=== PATIENT | male | born 1940 | race Caucasian/White ===

== ENCOUNTER 2016-11-06 06:10 | Inpatient (IN) | payer MEDICARE ==
[2016-11-06] VITALS (8 sets, daily range): BP systolic 140–186; BP diastolic 67–94; PULSE 54–60; RESP 16–24; O2SAT 99–100
[~2016-11-06 06:10] MED LIST: CIPR500T2 PO; LORT5TAB PO; NEXI40CA PO; PYRI200T4 PO; SIMV20 PO; vit d
[2016-11-06] MEDS ORDERED: ROCURONIUM INJ 50 MG/5 ML VIAL ONE ×2 (06:14→07:28)
[2016-11-06 06:35] LABS: I-STAT POTASSIUM 3.5 MMOL/L (3.5-4.9)
[2016-11-06 06:36] LABS: AUTOMATED NEUTROPHIL # 19.7 TH/MM3 (1.8-7.7); BASOPHIL # 0.1 TH/MM3 (0-0.2); BASOPHIL % 0.3 % (0.0-2.0); EOSINOPHIL % 0.1 % (0.0-4.0); HEMATOCRIT 29.5 % (39.0-51.0); LYMPH % 6.6 % (9.0-44.0); LYMPHOCYTE # 1.5 TH/MM3 (1.0-4.8); MEAN CORPUSCULAR HEMOGLOBIN 22.5 PG (27.0-34.0); MEAN CORPUSCULAR HGB CONC 31.3 % (32.0-36.0); MONO % 5.8 % (0.0-8.0); NEUT % 87.2 % (16.0-70.0); PLATELET COUNT 285 TH/MM3 (150-450); RED CELL DISTRIBUTION WIDTH 16.3 % (11.6-17.2); WHITE BLOOD COUNT 22.6 TH/MM3 (4.0-11.0)
[2016-11-06 06:37] LABS: HEMO FLAGS AUTO DIFF
--- NOTE | 2016-11-06 06:42 | RADRPT ---
EXAM DATE/TIME: 11/06/2016 06:31 [facility] COMPARISON: No previous studies available for comparison. INDICATIONS : Trauma alert, found on ground. RADIATION DOSE: 53.79 CTDIvol (mGy) MEDICAL HISTORY : Non-responsive. SURGICAL HISTORY : Non-responsive. ENCOUNTER: Initial ACUITY: 1 day PAIN SCALE: Non-responsive LOCATION: cranial TECHNIQUE: Multiple contiguous axial images were obtained of the head. Using automated exposure control and adj ustment of the mA and/or kV according to patient size, radiation dose was kept as low as reasonably a chievable to obtain optimal diagnostic quality images. FINDINGS: There is a massive left hemispheric parenchymal hematoma. As involves majority of the left temporopar ietal region. There is greater than 2.5 cm subfalcine shift. Intraventricular blood is also present. The basal cisterns are completely obliterated. There appears to be diffuse edema and diminished martin- white differentiation. There is some mucosal sinus disease in the left maxillary antrum. There is no evidence of skull fract ure. CONCLUSION: Massive left hemispheric parenchymal hematoma. Rico Yi MD on November 06, 2016 at 6:37 Board Certified Radiologist. This report was verified electronically.
[2016-11-06 06:43] LABS: INTERNATIONAL NORMALIZED RATIO 1.3 RATIO
--- NOTE | 2016-11-06 06:43 | RADRPT ---
EXAM DATE/TIME: 11/06/2016 06:05 [facility] COMPARISON: No previous studies available for comparison. INDICATIONS : Trauma alert. Patient found on floor non responsive. Evaluate for ET tube placement, post intubation. MEDICAL HISTORY : None. SURGICAL HISTORY : None. ENCOUNTER: Initial ACUITY: 1 day PAIN SCORE: Non-responsive. LOCATION: chest FINDINGS: Endotracheal tube is present satisfactory position with tip 2-3 cm above the angela. Lungs are symmet rically aerated and grossly clear. Cardiac contours are satisfactory. CONCLUSION: No acute disease Rico Yi MD on November 06, 2016 at 6:41 Board Certified Radiologist. This report was verified electronically.
--- NOTE | 2016-11-06 06:46 | PD.CONS ---
History of Present Illness Service Trauma evaluation Consult Requested By Trauma alert Reason for Consult Patient found down at home unresponsive and trauma alerted Primary Care Physician Domo Fernando M.D. Diagnoses: History of Present Illness This is an elderly gentleman who was found by his son daisy at his home early in the morning. Patient had a superficial abrasion on the bridge of his nose and was unresponsive. He was brought in as a trauma alert instead of a stroke alert. Review of Systems ROS Limitations: Unresponsive Past Family Social History Allergies: Coded Allergies: UNOBTAINABLE (Unverified , 11/06/16) Past Medical History Unobtainable due to the patient's condition Past Surgical History Unobtainable due to the patient's condition Reported Medications Unobtainable due to the patient's condition Family History Unobtainable due to the patient's condition Social History Unobtainable due to the patient's condition Physical Exam Physical Exam GENERAL: . SKIN: Superficial abrasion over the bridge of his nose and his right lateral upper eyelid. HEAD: Atraumatic. Normocephalic. No temporal or scalp tenderness. EYES: Unequal and sluggish left 5 mm right 3 mm. ENT: Vomitus in his mouth. NECK: Trachea midline. No JVD or lymphadenopathy. Supple, nontender, no meningeal signs. CARDIOVASCULAR: Regular rate and rhythm RESPIRATORY: Clear to auscultation bilaterally GASTROINTESTINAL: Abdomen soft, non-tender, nondistended MUSCULOSKELETAL: Extremities without clubbing, cyanosis, or edema NEUROLOGICAL: GCS of 5, intubated on arrival Laboratory Laboratory Tests Test 11/06/16 06:21 White Blood Count 22.6 Red Blood Count 4.10 Hemoglobin 9.2 Bedside Hemoglobin 10.5 Hematocrit 29.5 Bedside Hematocrit 31.0 Mean Corpuscular Volume 72.0 Mean Corpuscular Hemoglobin 22.5 Mean Corpuscular Hemoglobin 31.3 Concent Red Cell Distribution Width 16.3 Platelet Count 285 Mean Platelet Volume 9.3 Neutrophils (%) (Auto) 87.2 Lymphocytes (%) (Auto) 6.6 Monocytes (%) (Auto) 5.8 Eosinophils (%) (Auto) 0.1 Basophils (%) (Auto) 0.3 Neutrophils # (Auto) 19.7 Lymphocytes # (Auto) 1.5 Monocytes # (Auto) 1.3 Eosinophils # (Auto) 0.0 Basophils # (Auto) 0.1 CBC Comment AUTO DIFF Bedside Sodium 140 Bedside Potassium 3.5 Bedside Chloride 103 Bedside Blood Urea Nitrogen 18 Bedside Creatinine 0.8 Bedside Glucose 188 Result Diagram: 11/06/16620 Imaging Last [address] 11/06/16623 Signed Impressions: Service Date/Time: Sunday, November 06, 2016 06:31 - CONCLUSION: Massive left hemispheric parenchymal hematoma. Rico Yi MD Chest X-Ray 11/06/16623 Signed Impressions: Service Date/Time: Sunday, November 06, 2016 06:05 - CONCLUSION: No acute disease Rico Yi MD Chest CT 11/06/16623 Signed Impressions: Service Date/Time: Sunday, November 06, 2016 06:34 - CONCLUSION: No acute CT findings in the chest Rico Yi MD Cervical Spine CT 11/06/16623 Signed Impressions: Service Date/Time: Sunday, November 06, 2016 06:31 - CONCLUSION: Prominent degenerative changes. No acute lung injury. Rico Yi MD Abdomen/Pelvis CT 11/06/16623 Signed Impressions: Service Date/Time: Sunday, November 06, 2016 06:34 - CONCLUSION: No acute CT findings in the abdomen or pelvis. Rico Yi MD Assessment and Plan Assessment and Plan Massive hemorrhagic stroke Admit to medicine No evidence of acute traumatic injury, trauma to sign off Total critical care time in evaluation and management of this activation was 45 minutes Bird Hernandez MD Nov 06, 2016 06:45
[2016-11-06] MEDS ORDERED: IOHEXOL 350 MG/ML 10 ML VIAL (for RAD DIAG) IV ONE (06:48)
--- NOTE | 2016-11-06 06:55 | RADRPT ---
EXAM DATE/TIME: 11/06/2016 06:31 [facility] COMPARISON: No previous studies available for comparison. INDICATIONS : Trauma alert, found on ground. RADIATION DOSE: 23.90 CTDIvol (mGy) MEDICAL HISTORY : Non-responsive. SURGICAL HISTORY : Non-responsive. ENCOUNTER: Initial ACUITY: 1 day PAIN SCALE: Non-responsive LOCATION: neck TECHNIQUE: Volumetric scanning of the cervical spine was performed. Multiplanar reconstructions in the sagittal, coronal and oblique axial planes were performed. Using automated exposure control and adjustment o f the mA and/or kV according to patient size, radiation dose was kept as low as reasonably achievable to obtain optimal diagnostic quality images. FINDINGS: Cervical spine alignment is satisfactory. There is no evidence of cervical spine fracture. There are prominent degenerative changes present with disc space narrowing most notably at C3-4 and C6-7 small endplate osteophytes present at multiple levels. No significant bony canal compromise. Severe bilater al posterior facet arthropathy throughout. There is no evidence of paraspinal hematoma. CONCLUSION: Prominent degenerative changes. No acute lung injury. Rico Yi MD on November 06, 2016 at 6:52 Board Certified Radiologist. This report was verified electronically.
--- NOTE | 2016-11-06 06:58 | RADRPT ---
EXAM DATE/TIME: 11/06/2016 06:34 [facility] COMPARISON: No previous studies available for comparison. INDICATIONS : Trauma alert, found on ground. IV CONTRAST: 69 cc Omnipaque 350 (iohexol) IV ; Cumulative dose for multiple exams. ORAL CONTRAST: No oral contrast ingested. RADIATION DOSE: 19.17 CTDIvol (mGy) ; Combined studies - Thorax/Abdomen/Pelvis MEDICAL HISTORY : Non-responsive. SURGICAL HISTORY : Non-responsive. ENCOUNTER: Initial ACUITY: 1 day PAIN SCALE: Non-responsive LOCATION: abdomen TECHNIQUE: Volumetric scanning of the abdomen and pelvis was performed. Using automated exposure control and ad justment of the mA and/or kV according to patient size, radiation dose was kept as low as reasonably achievable to obtain optimal diagnostic quality images. FINDINGS: LOWER LUNGS: Mild right lung base atelectasis. LIVER: Homogeneous density without lesion. There is no dilation of the biliary tree. No calcified gallston es. SPLEEN: Normal size without lesion. PANCREAS: Within normal limits. KIDNEYS: Normal in size and shape. There is no mass, stone or hydronephrosis. ADRENAL GLANDS: Within normal limits. VASCULAR: There is no aortic aneurysm. BOWEL/MESENTERY: Moderate size hiatal hernia. The small bowel, and colon demonstrate no acute abnormality. There is n o free intraperitoneal air or fluid. ABDOMINAL WALL: Within normal limits. RETROPERITONEUM: There is no lymphadenopathy. BLADDER: No wall thickening or mass. REPRODUCTIVE: Likely previous prostatectomy with pelvic node dissection. No evidence of pelvic mass or free fluid. INGUINAL: There is no lymphadenopathy or hernia. MUSCULOSKELETAL: Within normal limits for patient age. CONCLUSION: No acute CT findings in the abdomen or pelvis. Rico Yi MD on November 06, 2016 at 6:54 Board Certified Radiologist. This report was verified electronically.
[2016-11-06] MEDS ORDERED: niCARdipine INJ 25 MG in SODIUM CHLOR 0.9% 250 ML INJ 250 ML IV SCH (07:00)
[2016-11-06] MEDS ORDERED: ETOMIDATE 20 MG/10 ML VIAL IV PUSH ONE (07:00)
[2016-11-06] MEDS ORDERED: ROCURONIUM INJ 50 MG/5 ML VIAL IV ONE (07:00)
--- NOTE | 2016-11-06 07:00 | RADRPT ---
EXAM DATE/TIME: 11/06/2016 06:34 [facility] COMPARISON: No previous studies available for comparison. INDICATIONS : Trauma alert, found on ground. IV CONTRAST: 69 cc Omnipaque 350 (iohexol) IV ; Cumulative dose for multiple exams. RADIATION DOSE: 19.17 CTDIvol (mGy) ; Combined studies - Thorax/Abdomen/Pelvis MEDICAL HISTORY : Non-responsive. SURGICAL HISTORY : Non-responsive. ENCOUNTER: Initial ACUITY: 1 day PAIN SCALE: Non-responsive LOCATION: chest TECHNIQUE: Volumetric scanning of the chest was performed. Using automated exposure control and adjustment of t he mA and/or kV according to patient size, radiation dose was kept as low as reasonably achievable to obtain optimal diagnostic quality images. FINDINGS: LUNGS: Mild right posterior lung base atelectasis. Tiny granulomatous densities in the left lung. No consoli dated changes. PLEURA: There is no pleural thickening or pleural effusion. MEDIASTINUM: The heart and great vessels demonstrate no acute abnormality. There is no mediastinal or hilar lymph adenopathy. Coronary artery calcifications. Moderate size hiatal hernia. AXILLAE: Within normal limits. No lymphadenopathy. SKELETAL: Within normal limits for patient age. MISCELLANEOUS: The visualized upper abdominal organs demonstrate no acute abnormality. CONCLUSION: No acute CT findings in the chest Rico Yi MD on November 06, 2016 at 6:56 Board Certified Radiologist. This report was verified electronically.
[2016-11-06 07:10] LABS: SCAN/DIFF AUTO DIFF CONFIRMED
[2016-11-06] MEDS ORDERED: MORPHINE SULFATE 8 MG/ML INJ IV PUSH ONE (07:15)
[2016-11-06] MEDS ORDERED: MORPHINE SULFATE 4 MG/ML INJ IV PRN (07:15)
[2016-11-06] MEDS ORDERED: LORazepam 2 MG/ML VIAL IV ONE ×2 (07:15→15:45)
[2016-11-06] MEDS ORDERED: SUGAMMADEX SODIUM 200 MG/2 ML VIAL IV PUSH ONE ×2 (07:34)
--- NOTE | 2016-11-06 08:03 | PD ---
HPI Chief Complaint: Trauma (Alert) Time Seen by Provider: 06:45 Travel History International Travel<30 days: No Contact w/Intl Traveler<30days: No Traveled to known affect area: No History of Present Illness HPI Patient is a 76-year-old male brought in as a trauma alert after he was found face down by his family at home. Patient was found on the ground with brown emesis around him, with deformity of his nose. He was trauma alerted by the fire department. Patient had a GCS of 7 per EMS. He is unresponsive and unable to ride history. Patient was last seen normal the previous night. He is on Xarelto. [facility] Past Medical History Medical History: Unable to Obtain Past Surgical History Surgical History: Unable to Obtain Social History Tobacco Use: No Allergies-Medications (Allergen,Severity, Reaction): Coded Allergies: UNOBTAINABLE (Unverified , 11/06/16) Review of Systems ROS Limitations: Unresponsive Physical Exam Exam Limitations: Altered Mental Status Narrative GENERAL: Unresponsive SKIN: Warm and dry. Abrasion to the nose HEAD: Atraumatic. Normocephalic. EYES: Left pupil larger than the right, nonreactive. ENT:Mucous membranes pink and moist. Deformity of the nose. NECK: Trachea midline. No JVD. CARDIOVASCULAR: Regular rate and rhythm. No murmur appreciated. RESPIRATORY: No accessory muscle use. Clear to auscultation. Breath sounds equal bilaterally. GASTROINTESTINAL: Abdomen soft, non-tender, nondistended. MUSCULOSKELETAL: No obvious deformities. No clubbing. No cyanosis. No edema. NEUROLOGICAL: Unresponsive, posturing Data Data Last Documented VS Vital Signs Date Time Temp Pulse Resp B/P Pulse Ox O2 Delivery O2 Flow Rate FiO2 11/06/16 06:43 100 100 11/06/16 06:20 15.00 Orders Rocuronium Inj (Zemuron Inj) (11/06/16 06:14) I-Stat Profile (11/06/16 06:24) I-Stat Creatinine (11/06/16 06:24) Complete Blood Count With Diff (11/06/16 06:24) Prothrombin Time / Inr (Pt) (11/06/16 06:24) Act Partial Throm Time (Ptt) (11/06/16 06:24) Type And Screen (11/06/16 06:24) Chest, Single Ap (11/06/16 06:24) Ct Brain W/O Iv Contrast(Rout) (11/06/16 06:24) Ct Cerv Spine W/O Contrast (11/06/16 06:24) Ct Abd/Pel W Iv Contrast(Rout) (11/06/16 06:24) Ct Thorax/ Chest W Iv Contrast (11/06/16 06:24) Iv Access Insert/Monitor (11/06/16 06:24) Ecg Monitoring (11/06/16 06:24) Oximetry (11/06/16 06:24) Oxygen Administration (11/06/16 06:24) Nicardipine Inj (Cardene Inj) (11/06/16 06:34) Iohexol 350 Inj (Omnipaque 350 Inj) (11/06/16 06:48) Troponin I (11/06/16 06:54) Basic Metabolic Panel (Bmp) (11/06/16 06:54) Nicardipine Inj (Cardene Inj) (11/06/16 07:00) Rocuronium Inj (Zemuron Inj) (11/06/16 07:00) Etomidate Inj (Amidate Inj) (11/06/16 07:00) Admit Order (Ed Use Only) (11/06/16 ) Labs Laboratory Tests Test 11/06/16 06:21 White Blood Count 22.6 TH/MM3 Red Blood Count 4.10 MIL/MM3 Hemoglobin 9.2 GM/DL Bedside Hemoglobin 10.5 G/DL Hematocrit 29.5 % Bedside Hematocrit 31.0 % Mean Corpuscular Volume 72.0 FL Mean Corpuscular Hemoglobin 22.5 PG Mean Corpuscular Hemoglobin 31.3 % Concent Red Cell Distribution Width 16.3 % Platelet Count 285 TH/MM3 Mean Platelet Volume 9.3 FL Neutrophils (%) (Auto) 87.2 % Lymphocytes (%) (Auto) 6.6 % Monocytes (%) (Auto) 5.8 % Eosinophils (%) (Auto) 0.1 % Basophils (%) (Auto) 0.3 % Neutrophils # (Auto) 19.7 TH/MM3 Lymphocytes # (Auto) 1.5 TH/MM3 Monocytes # (Auto) 1.3 TH/MM3 Eosinophils # (Auto) 0.0 TH/MM3 Basophils # (Auto) 0.1 TH/MM3 CBC Comment AUTO DIFF Differential Comment AUTO DIFF CONFIRMED Prothrombin Time 14.0 SEC Prothromb Time International 1.3 RATIO Ratio Activated Partial 27.0 SEC Thromboplast Time Bedside Sodium 140 MMOL/L Sodium Level 138 MEQ/L Bedside Potassium 3.5 MMOL/L Potassium Level 3.5 MEQ/L Bedside Chloride 103 MMOL/L Chloride Level 104 MEQ/L Carbon Dioxide Level 20.9 MEQ/L Anion Gap 13 MEQ/L Bedside Blood Urea Nitrogen 18 MG/DL Blood Urea Nitrogen 18 MG/DL Creatinine 1.11 MG/DL Bedside Creatinine 0.8 MG/DL Estimat Glomerular Filtration 57 ML/MIN Rate Bedside Glucose 188 MG/DL Random Glucose 186 MG/DL Calcium Level 9.1 MG/DL Troponin I LESS THAN 0.02 NG/ML Blood Type A POSITIVE Antibody Screen NEGATIVE MDM Medical Decision Making Medical Screen Exam Complete: Yes Emergency Medical Condition: Yes Interpretation(s) ECG shows sinus rhythm at 77, no ST elevation or depression. Differential Diagnosis ICH vs SAH vs CVA vs sepsis vs electrolyte abnormalities Narrative Course Patient is a 76-year-old male brought in as a trauma alert after he was found face down in his house. Patient is posturing on arrival. When he entered the trauma bay, he was not protecting his airway. He was intubated. Exam showed some abrasions to the nose, no other signs of trauma. Patient was taken to CT where is found he had a devastating head bleed. He was started on Cardene for blood pressure control. Admit to the ICU. Procedures Procedure Narrative After the risks and benefits were discussed the following procedure was performed: INTUBATION: The patient was put in optimal position for the procedure. Rapid sequence intubation was initiated by me using 20 milligrams of etomidate IV and 80 milligrams of rocuronium IV. The patient was intubated with a 8.0 cuffed endotracheal tube. Tube placement was confirmed by visualization of the tube and balloon passing through the cords, capnometry and subsequent chest x-ray. Breath sounds were equal and well aerated bilaterally postintubation. No breath sounds over stomach. Patient tolerated procedure well. Diagnosis Primary Impression: ICH (intracerebral hemorrhage) Qualified Code: I61.1 - Nontraumatic cortical hemorrhage of left cerebral hemisphere Admitting Information Admitting Physician Requests: Admit Carmita Burton MD Nov 06, 2016 08:03
[2016-11-06] MEDS: LORazepam 2 MG/ML VIAL IV PRN ×2 (08:11→10:51)
[2016-11-06] MEDS ORDERED: MORPHINE SULFATE 4 MG/ML INJ IV PUSH ONE (08:15)
[2016-11-06 10:51] LABS: ANION GAP 13 MEQ/L (5-15); BICARBONATE 20.9 MEQ/L (21.0-32.0); BLOOD UREA NITROGEN 18 MG/DL (7-18); CHLORIDE 104 MEQ/L (98-107); GLOMERULAR FILTRATION RATE 57 ML/MIN (>89); POTASSIUM 3.5 MEQ/L (3.5-5.1); SODIUM (NA) 138 MEQ/L (136-145)
--- NOTE | 2016-11-06 12:32 | DEATH SUM ---
Pronouncement Date Pronounced : Nov 06, 2016 Time Of : 1015 Pronouncement Called to pronounce of patient. Identified patient as Rico Monroy with wrist band MR# [id number]. Patient with no cardiac activity in 2 separate leads and no palpable/auscible cardiac activity. Patient with no spontaneous respirations, no corneal reflex or response to painful stimuli. Pupils fixed and dilated. Preliminary Cause of : Cardiac arrest Brad Ace MD Nov 06, 2016 12:32
--- NOTE | 2016-11-06 12:42 | HHI.HP ---
[facility] Service Critical Care Medicine Primary Care Physician Domo Fernando M.D. Admission Diagnosis ICH Diagnosis: Chief Complaint: found unresponsive Travel History International Travel<30 Days: No Contact w/Intl Traveler <30 Da: No History of Present Illness This is a 76yM with recent history of atrial fibrillation on Xarelto who presented via Trauma alert when he was found unresponsive at home by his son. Apparently per his son, he was having significant nausea and vomiting for a few days, and was not feeling well. He was last seen normal last night, and this morning when his son arrived, he found him face down. Unknown time that he was down. We do not know much else about the patient, and he arrived as a Rico Cagle trauma. I was not in the trauma bay when he arrived, but per report he was extensor posturing with a blown left pupil. When I evaluated the patient, he was intubated, sedated, and paralyzed. Review of Systems ROS Limitations: Clinical Condition, Intubated, Altered Mental Status, Unresponsive Past Family Social History Allergies: Coded Allergies: UNOBTAINABLE (Unverified , 11/06/16) Past Medical History atrial fibrillation A complete past medical history is unobtainable secondary to the clinical condition of the patient. Past Surgical History Unknown secondary to the clinical condition of the patient. Reported Medications Xarelto. A complete med list is unobtainable secondary to the clinical condition of the patient. Active Ordered Medications See MAR Family History unobtainable secondary to the clinical condition of the patient. Social History unobtainable secondary to the clinical condition of the patient. Physical Exam Vital Signs Vital Signs Date Time Temp Pulse Resp B/P Pulse Ox O2 Delivery O2 Flow Rate FiO2 11/06/16 09:52 Room Air 21 11/06/16 09:52 Ventilator 11/06/16 09:30 54 16 179/94 99 Ventilator 11/06/16 09:00 56 16 186/86 100 Ventilator 11/06/16 08:30 54 16 163/79 100 Ventilator 11/06/16 08:00 54 16 151/79 99 Ventilator 11/06/16 07:30 56 24 158/74 99 Ventilator 11/06/16 07:00 60 18 140/67 100 Ventilator 11/06/16 06:43 100 100 11/06/16 06:43 100 100 11/06/16 06:20 100 100 11/06/16 06:20 100 15.00 100 Physical Exam gen: elderly male, lying in bed, intubated, sedated, paralyzed. heent: bilateral pupils 6mm, nonreactive. mucous membranes dry. abrasion over nose. neck: no jvd. c-collar in place. trachea midline. chest: equal chest rise. bilateral coarse rales. orotracheally intubated. dark emesis in endotracheal tube. cv: tachycardic rate, regular rhythm. on nicardipine, current sbp 140. no appreciable murmurs abd: soft, nontender, nondistended. no guarding. extr: no peripheral edema. distal pulses 2+ neuro: sedated and paralyzed. pupils as above. Laboratory Laboratory Tests Test 11/06/16 06:21 White Blood Count 22.6 Red Blood Count 4.10 Hemoglobin 9.2 Bedside Hemoglobin 10.5 Hematocrit 29.5 Bedside Hematocrit 31.0 Mean Corpuscular Volume 72.0 Mean Corpuscular Hemoglobin 22.5 Mean Corpuscular Hemoglobin 31.3 Concent Red Cell Distribution Width 16.3 Platelet Count 285 Mean Platelet Volume 9.3 Neutrophils (%) (Auto) 87.2 Lymphocytes (%) (Auto) 6.6 Monocytes (%) (Auto) 5.8 Eosinophils (%) (Auto) 0.1 Basophils (%) (Auto) 0.3 Neutrophils # (Auto) 19.7 Lymphocytes # (Auto) 1.5 Monocytes # (Auto) 1.3 Eosinophils # (Auto) 0.0 Basophils # (Auto) 0.1 CBC Comment AUTO DIFF Differential Comment AUTO DIFF CONFIRMED Prothrombin Time 14.0 Prothromb Time International 1.3 Ratio Activated Partial 27.0 Thromboplast Time Bedside Sodium 140 Sodium Level 138 Bedside Potassium 3.5 Potassium Level 3.5 Bedside Chloride 103 Chloride Level 104 Carbon Dioxide Level 20.9 Anion Gap 13 Bedside Blood Urea Nitrogen 18 Blood Urea Nitrogen 18 Creatinine 1.11 Bedside Creatinine 0.8 Estimat Glomerular Filtration 57 Rate Bedside Glucose 188 Random Glucose 186 Calcium Level 9.1 Troponin I LESS THAN 0.02 Blood Type A POSITIVE Antibody Screen NEGATIVE Result Diagram: 11/06/1662011/06/16620 Imaging Last [address] 11/06/16623 Signed Impressions: Service Date/Time: Sunday, November 06, 2016 06:31 - CONCLUSION: Massive left hemispheric parenchymal hematoma. Rico Yi MD Chest X-Ray 11/06/16623 Signed Impressions: Service Date/Time: Sunday, November 06, 2016 06:05 - CONCLUSION: No acute disease Rico Yi MD Chest CT 11/06/16623 Signed Impressions: Service Date/Time: Sunday, November 06, 2016 06:34 - CONCLUSION: No acute CT findings in the chest Rico Yi MD Cervical Spine CT 11/06/16623 Signed Impressions: Service Date/Time: Sunday, November 06, 2016 06:31 - CONCLUSION: Prominent degenerative changes. No acute lung injury. Rico Yi MD Abdomen/Pelvis CT 11/06/16623 Signed Impressions: Service Date/Time: Sunday, November 06, 2016 06:34 - CONCLUSION: No acute CT findings in the abdomen or pelvis. Rico Yi MD Assessment and Plan Assessment and Plan Assessment: 76yM with history of atrial fibrillation on Xarelto presents after being found unresponsive for an unknown period of time with a GCS of 4 and a catastrophic left sided intraparenchymal hemorrhage. Given the size of the bleed and GCS on presentation, his ICH score is 4, and if he were only 2 years older, his ICH score would be 5. I had a long discussion with his family where I explained our findings. I explained that given his age and comorbidities, this is essentially a life-ending event. I explained that the survival from a bleed like this is somewhere around 3%, and that survival would come with severe permanent neurologic disability. The family expressed understanding of this and elected to transition the patient to comfort measures and pursue palliative extubation and withdraw of care. Active Problems: Catastrophic Left sided intraparenchymal hemorrhage with 2.6cm midline shift Severe Encephalopathy Acute hypoxic and hypercarbic respiratory failure Plan: -- morphine, ativan for comfort measures -- pursue palliative extubation and withdraw of care. This patient remained severely critically ill with multiple organ systems which are life-threatening. I have spent in excess of 55 minutes discontinuously in the care and management of this patient while our goals remained aggressive, during the evaluation and stabilization of this critically ill patient. This time is exclusive of procedures, and includes, but is not limited to, evaluation of the patient, review of the medical record, discussions with family , consultants, nursing staff, or respiratory therapy, and documentation in the medical record. This time reflects the time I spend in the care and management of the patient before we transitioned to comfort measures. Code Status DNR/DNI Discussed Condition With family at bedside, ER physician, trauma surgeon electronic resources librarian (trauma alert) Brad Ace MD Nov 06, 2016 12:42
--- NOTE | 2016-11-06 13:30 | HHI.DS ---
Summary Note Date of : Nov 06, 2016 Time Of : 1015 Admission Date Nov 06, 2016 at 06:58 Admitting Diagnosis ICH Diagnosis at Time of : Brief History This is a 76yM with recent history of atrial fibrillation on Xarelto who presented via Trauma alert when he was found unresponsive at home by his son. Apparently per his son, he was having significant nausea and vomiting for a few days, and was not feeling well. He was last seen normal last night, and this morning when his son arrived, he found him face down. Unknown time that he was down. We do not know much else about the patient, and he arrived as a Rico Cagle trauma. I was not in the trauma bay when he arrived, but per report he was extensor posturing with a blown left pupil. When I evaluated the patient, he was intubated, sedated, and paralyzed. CBC/BMP: 11/06/16 0621 11/06/16 0621 Significant Findings Laboratory Tests Test 11/06/16 06:21 White Blood Count 22.6 TH/MM3 (4.0-11.0) Red Blood Count 4.10 MIL/MM3 (4.50-5.90) Hemoglobin 9.2 GM/DL (13.0-17.0) Bedside Hemoglobin 10.5 G/DL (12.0-17.0) Hematocrit 29.5 % (39.0-51.0) Bedside Hematocrit 31.0 % (38.0-51.0) Mean Corpuscular Volume 72.0 FL (80.0-100.0) Mean Corpuscular Hemoglobin 22.5 PG (27.0-34.0) Mean Corpuscular Hemoglobin 31.3 % Concent (32.0-36.0) Neutrophils (%) (Auto) 87.2 % (16.0-70.0) Lymphocytes (%) (Auto) 6.6 % (9.0-44.0) Neutrophils # (Auto) 19.7 TH/MM3 (1.8-7.7) Monocytes # (Auto) 1.3 TH/MM3 (0-0.9) Prothrombin Time 14.0 SEC (9.8-11.6) Carbon Dioxide Level 20.9 MEQ/L (21.0-32.0) Estimat Glomerular Filtration 57 ML/MIN (>89) Rate Bedside Glucose 188 MG/DL (60-95) Random Glucose 186 MG/DL (74-106) Troponin I LESS THAN 0.02 NG/ML (0.02-0.05) Imaging Last [address] 11/06/16623 Signed Impressions: Service Date/Time: Sunday, November 06, 2016 06:31 - CONCLUSION: Massive left hemispheric parenchymal hematoma. Rico Yi MD Chest X-Ray 11/06/16623 Signed Impressions: Service Date/Time: Sunday, November 06, 2016 06:05 - CONCLUSION: No acute disease Rico Yi MD Chest CT 11/06/16623 Signed Impressions: Service Date/Time: Sunday, November 06, 2016 06:34 - CONCLUSION: No acute CT findings in the chest Rico Yi MD Cervical Spine CT 11/06/16623 Signed Impressions: Service Date/Time: Sunday, November 06, 2016 06:31 - CONCLUSION: Prominent degenerative changes. No acute lung injury. Rico Yi MD Abdomen/Pelvis CT 11/06/16623 Signed Impressions: Service Date/Time: Sunday, November 06, 2016 06:34 - CONCLUSION: No acute CT findings in the abdomen or pelvis. Rico Yi MD Hospital Course 76yM with history of atrial fibrillation on Xarelto presents after being found unresponsive for an unknown period of time with a GCS of 4 and a catastrophic left sided intraparenchymal hemorrhage. Given the size of the bleed and GCS on presentation, his ICH score is 4, and if he were only 2 years older, his ICH score would be 5. I had a long discussion with his family where I explained our findings. I explained that given his age and comorbidities, this is essentially a life-ending event. I explained that the survival from a bleed like this is somewhere around 3%, and that survival would come with severe permanent neurologic disability. The family expressed understanding of this and elected to transition the patient to comfort measures and pursue palliative extubation and withdraw of care. He remained in the emergency room and we pursued palliative extubation and withdraw of care, and he peacefully with his family at bedside at 10:15am. Brad Ace MD Nov 06, 2016 13:30
[2016-11-06] MEDS ORDERED: ACETAMINOPHEN 650 MG SUPP PR PRN (15:45)
[2016-11-06] MEDS ORDERED: MORPHINE SULFATE 4 MG/ML INJ IV ONE (15:45)
--- NOTE | 2016-11-06 22:56 | EKG ---
Date Performed: 11/06/2016 Time Performed: 06:49:10 PTAGE: 89 years EKG: Sinus rhythm POSSIBLE LATERAL MYOCARDIAL INFARCTION ABNORMAL ECG NO PREVIOUS TRACING DOCTOR: Raf Garza Interpretating Date/Time 11/06/2016 22:55:57
== END 2016-11-06 13:29 | disposition expired | DRG 64 ==
LOC: NEPI 06:10 → MERGE 06:58 → EDBD 06:58 → NEDA 06:58 → NEDH 11:03 → NEDA 11:04
PROVIDERS: ADMIT Internal Medicine Critical Care Medicine; ATTEND Internal Medicine Critical Care Medicine
PROC: 5A1935Z Respiratory Ventilation, Less than 24 Consecutive Hours (ICD-10-PCS; principal; 2016-11-06)
PROC: 0BH17EZ Insertion of Endotracheal Airway into Trachea, Via Natural or Artificial Opening (ICD-10-PCS; 2016-11-06)
DX: I61.1 Nontraumatic intracerebral hemorrhage in hemisphere, cortical (principal); G93.40 Encephalopathy, unspecified; J96.01 Acute respiratory failure with hypoxia; J96.02 Acute respiratory failure with hypercapnia; I48.91 Unspecified atrial fibrillation; Z79.02 Long term (current) use of antithrombotics/antiplatelets; R11.2 Nausea with vomiting, unspecified; Z66 Do not resuscitate; Z51.5 Encounter for palliative care; S00.31XA Abrasion of nose, initial encounter; S00.211A Abrasion of right eyelid and periocular area, initial encounter; X58.XXXA Exposure to other specified factors, initial encounter; Y93.9 Activity, unspecified; Y92.009 Unspecified place in unspecified non-institutional (private) residence as the place of occurrence of the external cause; I46.9 Cardiac arrest, cause unspecified
CPT/HCPCS: 31500; 70450; 71010; 71260; 72125; 74177; 80048; 82435; 82565; 82947; 84132; 84295; 84484; 84520; 85025; 85610; 85730; 86850; 86900; 86901; 93005; 96374; 99291; G0390; J2060; J2270; Q9967